=== PATIENT | female | born 1990 | race Caucasian/White ===

== ENCOUNTER 2022-10-09 08:55 | Emergency (ER) | payer MEDICAID, SELFPAY ==
--- NOTE | 2022-10-09 09:08 | XRR_ITS ---
PROCEDURE INFORMATION: Exam: XR Left Shoulder Exam date and time: 10/09/2022 9:27 AM Age: 32 years old Clinical indication: Injury or trauma; Fall; Blunt trauma (contusions or hematomas); Shoulder; Left; Additional info: Fall/injury TECHNIQUE: Imaging protocol: Radiologic exam of the Left shoulder. Views: 2 or more views. COMPARISON: CT cervical spin wo con* [id number] 10/09/2022 9:17 AM FINDINGS: Bones/joints: Normal. Soft tissues: Normal. XR/XR shoulder LT min 2V* [id number] IMPRESSION: No acute findings.
--- NOTE | 2022-10-09 09:08 | CT_ITS ---
WS: [id number] CT CERVICAL TRAUMA TECHNIQUE: Noncontrast CT of the cervical spine with coronal and sagittal reformatted images. CLINICAL INFORMATION: fall COMPARISON: None. DLP: 1011.[address] scans at [facility] use at least one of these dose optimization techniques: automated e xposure control; mA and/or kV adjustment per patient size (includes targeted exams where dose is matc hed to clinical indication); or iterative reconstruction. FINDINGS: Straightening of the normal cervical lordosis. Mild cervical curve. Normal craniocervical junction. N ormal C1-C2 articulation. Dens is normal in appearance. Normal occipital condyles. No high-grade spin al canal narrowing. Normal C1 ring. No evidence of acute fracture or dislocation. Normal prevertebral soft tissues. Mastoids air cells are well aerated. CT/CT cervical spin wo con* [id number] IMPRESSION: No evidence of acute fracture or dislocation.
--- NOTE | 2022-10-09 09:08 | XRR_ITS ---
PROCEDURE INFORMATION: Exam: XR Left Wrist Exam date and time: 10/09/2022 9:27 AM Age: 32 years old Clinical indication: Injury or trauma; Fall; Blunt trauma (contusions or hematomas); Wrist; Left; Additional info: Fall/injury TECHNIQUE: Imaging protocol: Radiologic exam of the Left wrist. Views: 3 or more views. COMPARISON: No relevant prior studies available. FINDINGS: Bones/joints: Normal. Soft tissues: Normal. XR/XR wrist LT min 3V* [id number] IMPRESSION: No acute findings.
--- NOTE | 2022-10-09 09:08 | CT_ITS ---
WS: [id number] CT HEAD TECHNIQUE: Noncontrast CT of the head obtained from the skullbase to the vertex. CLINICAL INFORMATION: fall, seizure COMPARISON: 2006 DLP: 1011.[address] scans at [facility] use at least one of these dose optimization techniques: automated e xposure control; mA and/or kV adjustment per patient size (includes targeted exams where dose is matc hed to clinical indication); or iterative reconstruction. FINDINGS: No evidence of intracranial hemorrhage or mass effect. Ventricular system and basal cisterns are vasquez nt. No extra-axial fluid collections. Chiari I malformation unchanged with cerebellar tonsils 6 mm be low the foramen magnum. Normal 4th ventricle. No hydrocephalus. Mild crowding of the foramen magnum u nchanged. Normal lujan-white differentiation. Paranasal sinuses and mastoid air cells are well aerated. .Normal visualized soft tissues. CT/CT head wo con* [id number] IMPRESSION: 1. No evidence of intracranial hemorrhage or mass effect. 2. Normal lujan-white differentiation. 3. Chiari I malformation unchanged since the MRI 2005. Normal 4th ventricle. N o hydrocephalus. Mild crowding of the foramen magnum unchanged. 4. Recommend further evaluation of the cervical cord with MRI to exclude syrin x on an elective basis 5. Otherwise no acute intracranial findings.
--- NOTE | 2022-10-09 09:09 | W.ED.SEIZURE ---
HPI - Seizure General: Chief Complaint: Fall Stated Complaint: post seziure Time Seen by Provider: 10/09/22 08:56 Source: patient and EMS Mode of arrival: EMS Limitations: no limitations History of Present Illness: HPI Narrative: Patient is a nice 32-year-old female presents to ED today via EMS at the request of [facility] for evaluation of a head injury following a seizure. Patient tells me she has a longstanding history of epilepsy. She states she normally takes Topamax and Phenytoin daily for her seizures. She states she has been on several medications for her seizures previously but has never had good control of them. Patient states while at [facility] they let my medications run out and states she missed doses of her Phenytoin causing her to have seizures. She states on one of the seizures she struck her head. She is also complaining of some discomfort to her left shoulder and left wrist. Patient states [facility] is trying to get her [place] Medicaid so she can get back into see a neurologist. complaint: seizure Onset (ago): day(s) Witnessed: Yes - by Bystander Trauma: Yes Seizure History: Yes Place: [facility] Possible Precipitating Event: medication Associated symptoms: Reports no associated symptoms; Deny chest pain, chills, confusion, fever(s), malaise or syncope Treatments prior to arrival: none Review of Systems Const: Denies: fever(s), chills, body aches, fatigue or malaise Card: Denies: chest pain, palpitations, lightheadedness, syncope or pre-syncope Resp: Denies: dyspnea GI: Denies: abdominal pain, nausea or vomiting Musc: Reports: neck pain and joint pain (L shoulder, L wrist); Denies: back pain, extremity pain, extremity swelling, joint swelling, joint redness or joint warmth Neuro: Denies: headache(s), numbness in extremities, weakness in extremities, sensory changes, lack of coordination, difficulty walking, frequent falls, dizziness, vertigo, confusion, behavioral changes, Slurred speech present or difficulty communicating thoughts Physical Exam Const: COMMON NORMALS: no acute distress, average body habitus, patient oriented x3, no limitations, healthy appearing, alert and well nourished GENERAL APPEARANCE: cooperative ORIENTATION/CONSCIOUSNESS: Yes awake, Yes oriented to person, Yes oriented to place and Yes oriented to time HENMT: COMMON NORMALS: normocephalic and atraumatic HEAD & SCALP: normal to inspection, normocephalic and atraumatic Eye: COMMON NORMALS: Equal, round and reactive pupils present and EOMs intact bilaterally GENERAL EYE: normal light reflex PUPIL: Yes Equal, round and reactive pupils present DIRECT OPHTHALMOSCOPY: Yes normal light reflex Neck/C-Spine: COMMON NORMALS: full ROM CERVICAL SPINE: Yes pain with cervical ROM, Yes Cervical spine tenderness, No step off deformity and Yes Paracervical muscle tenderness left Chest: COMMONS NORMALS: normal inspection of the chest and normal palpation of entire chest wall Resp: COMMON NORMALS: normal respiratory effort and clear to auscultation bilaterally AUSCULTATION: clear to auscultation bilaterally Cardio: COMMON NORMALS: regular rate and regular rhythm RATE: regular rate RHYTHM: regular rhythm Back/Pelvis: COMMON NORMALS: thoracic and lumbar spine normal to inspection, no thoracic nor lumbar tenderness and thoraco-lumbar ROM normal Extremity: COMMON NORMALS: normal to inspection, capillary refill normal and no joint enlargement GENERAL: Yes normal exam except as noted LEFT UPPER EXTREMITY: Yes shoulder joint Left shoulder joint: Yes palpation (tenderness), Yes ROM (limited secondary to pain) and Yes neurovascular exam (normal) and Yes wrist (mild discomfort and swelling noted) Left wrist: Yes ROM (fairly normal ROM but reports pain) and Yes neurovascular exam (normal) Neuro: JACKIE COMA SCALE: document GCS findings Jackie coma scale eye opening: Spontaneous Mackay coma scale verbal response: Orientated Mackay coma scale motor response: Obey commands Mackay coma scale total score: 15 COMMON NORMALS: patient oriented x3, CN's II-XII intact bilaterally, moves all extremities, no focal motor deficits, no sensory deficits noted and gait normal SENSORIUM/ORIENTATION: Yes alert, Yes oriented to person, Yes oriented to place and Yes oriented to time Skin: COMMON NORMALS: no rashes or lesions noted GENERAL SKIN EXAM: no rashes or lesions noted TRAUMA: no lacerations or abrasions MDM - Seizure MDM Narrative Medical decision making narrative: Patient here after [facility] requested she come for evaluation after striking her head during the seizure. Patient has a longstanding history of epilepsy and uncontrolled seizures. CT head and cervical spine were negative for acute pathology. She does have a Chiari I malformation that is unchanged since 2005. XRs of her shoulder and wrist were negative. Patient will be discharged back to [facility] with refills of her epileptic medications. Case management referral placed to get her back in/seen by neurology. Lab Data Labs: Radiology Impressions Cervical Spine CT 10/09/22 09:08 IMPRESSION: No evidence of acute fracture or dislocation. Head CT 10/09/22 09:08 IMPRESSION: 1. No evidence of intracranial hemorrhage or mass effect. 2. Normal lujan-white differentiation. 3. Chiari I malformation unchanged since the MRI 2005. Normal 4th ventricle. No hydrocephalus. Mild crowding of the foramen magnum unchanged. 4. Recommend further evaluation of the cervical cord with MRI to exclude syrinx on an elective basis 5. Otherwise no acute intracranial findings. Shoulder X-Ray 10/09/22 09:08 IMPRESSION: No acute findings. Wrist X-Ray 10/09/22 09:08 IMPRESSION: No acute findings. Discharge Plan Discharge Patient Disposition: Home Clinical Impression: Epilepsy Qualifiers: Epilepsy type: unspecified Intractability: not intractable Status epilepticus: without status epilepticus Qualified Code(s): G40.909 - Epilepsy, unspecified, not intractable, without status epilepticus Contusion of left shoulder Qualifiers: Encounter type: initial encounter Qualified Code(s): S40.012A - Contusion of left shoulder, initial encounter Minor head injury Qualifiers: Encounter type: initial encounter Qualified Code(s): S09.90XA - Unspecified injury of head, initial encounter Condition: Stable Prescriptions: New phenytoin sodium extended 100 mg capsule 100 mg PO TID Qty: 90 0RF topiramate [Topamax] 200 mg tablet 200 mg PO DAILY Qty: 30 0RF Discharge Orders: Discharge ED (Routine); Ordered 10/09/22 Ordered By: Sapna Hall Referrals: Vivian Ridley FNP [Primary Care Provider] - Coding Level of Care Code ED [employer] for [employer]ar [employer]
--- NOTE | 2022-10-09 10:15 | DCPLANNER ---
Addendum entered by Madhuri Hernandez 12/26/22 08:41: This appointment was cancelled Addendum entered by Madhuri Hernandez 10/12/22 13:54: Patient has a follow up appointment scheduled for Saturday December 24, 2022 at 12:[address] Morales at neurology. Clinic will call patient with appointment information. Original Note: manager clinical applications had message to schedule a follow up appointment for patient with neurology. manager clinical applications sent patients information to the front office staff at neurology. Patients information will be printed and reviewed. Clinic will call patient with appointment information.
== END 2022-10-09 10:38 | disposition home or self-care (01) ==
PROVIDERS: Emergency Provider Physician Assistant; PCP Nurse Practitioner
DX: G40.909 Epilepsy, unspecified, not intractable, without status epilepticus (principal); S40.012A Contusion of left shoulder, initial encounter; S09.8XXA Other specified injuries of head, initial encounter; X58.XXXA Exposure to other specified factors, initial encounter
CPT/HCPCS: 70450; 72125; 73030; 73110; 99284